=== PATIENT | female | born 1980 | race American Indian/Alaskan Native ===

== ENCOUNTER 2021-09-02 10:24 | Outpatient (CLI) | payer MEDICAID, OTHER ==
--- NOTE | 2021-09-02 12:18 | Fluoroscopy Report ---
Static cystogram Indication: LACERATION OF BLADDER. Technique: Single contrast water-soluble technique utilized to evaluate the urinary bladder. Findings: To begin the exam, the urethra was cannulated with a Pierce catheter. Approximately 200 mL of water-soluble contrast was instilled via a passive retrograde technique. The bladder fills normally with no extravasation or filling defect. No significant post void residual . Impression: Unremarkable exam. Fluoroscopic time: 0.5 minutes Number of fluoroscopic images: 13 Signer Name: Jered Ramos MD Signed: 09/02/2021 12:14 PM Workstation Name: [id number]
== END 2021-09-02 10:25 | disposition home or self-care (01) ==
LOC: FLUORO 10:24
PROVIDERS: ATTEND Obstetrics & Gynecology
DX: S37.23XA Laceration of bladder, initial encounter (principal); E11.9 Type 2 diabetes mellitus without complications; K21.9 Gastro-esophageal reflux disease without esophagitis; Z79.899 Other long term (current) drug therapy; Z98.890 Other specified postprocedural states; X58.XXXA Exposure to other specified factors, initial encounter; Y93.89 Activity, other specified; Y92.89 Other specified places as the place of occurrence of the external cause; Y99.8 Other external cause status
CPT/HCPCS: 51600; 74430; Q9958